=== PATIENT | male | born 1985 | race Two or more races ===

== ENCOUNTER 2022-12-14 20:06 | Emergency (ER) | payer SELFPAY ==
[~2022-12-14] VITALS: Ht 177.8 cm; Wt 113.4 kg
--- NOTE | 2022-12-14 20:30 | NUR ---
TO ER BED 10. BIBRA FROM HOME C/O NECK PAIN & LEFT SHOULDER "PRESSURE" X1DAY. PT IS ALERT AND ORIENTED. RR EVEN AND NON LABORED. CONNECTED TO POX AND HEART MONITOR. VSS
[2022-12-14] MEDS ORDERED: LORAZEPAM 1 MG TABLET ONE (20:50)
[2022-12-14] MEDS ORDERED: IBUPROFEN 400 MG TABLET ONE (20:50)
[2022-12-14] MEDS ORDERED: LORAZEPAM 1 MG TABLET PO ONE (21:00)
[2022-12-14] MEDS ORDERED: IBUPROFEN 400 MG TABLET PO ONE (21:00)
--- NOTE | 2022-12-14 22:00 | NUR ---
Patient discharged to home in stable condition. Written and verbal after care instructions given. Patient verbalizes understanding of instruction.
[2022-12-14 22:23] VITALS: BP 148/82
== END 2022-12-14 22:27 | disposition home or self-care (01) ==
LOC: ER 20:13
DX: M25.512 Pain in left shoulder (principal)
CPT/HCPCS: 71045-TC